=== PATIENT | female | born 1975 | race Two or more races ===

== ENCOUNTER 2020-02-21 07:27 | Outpatient (CLI) | payer OTHER | END 2020-02-21 07:32 | disposition home or self-care (01) | LOC: TOM 07:27 | PROVIDERS: ATTEND Internal Medicine Gastroenterology | DX: K76.0 Fatty (change of) liver, not elsewhere classified (principal); Z12.11 Encounter for screening for malignant neoplasm of colon; K59.09 Other constipation ==